=== PATIENT | female | born 1965 | race Caucasian/White ===

== ENCOUNTER 2020-04-24 16:52 | Outpatient (CLI) | payer BC ==
--- NOTE | 2020-04-24 17:25 | RAD ---
XR Knee Rt 4 View STANDARD HISTORY: Right knee pain FINDINGS: No fracture or dislocation is identified. Degenerative changes are present.
--- NOTE | 2020-04-24 17:34 | RAD ---
LEFT ANKLE THREE VIEWS: 04/24/10 HISTORY: Left ankle pain. FINDINGS/IMPRESSION: No acute fracture or dislocation is seen. The ankle mortise is maintained. Posterior and plantar calc aneal spurs are present. POS: OFF
== END 2020-04-24 16:53 | disposition home or self-care (01) ==
LOC: NAV RAD 16:52
PROVIDERS: ATTEND Family Medicine
DX: M25.561 Pain in right knee (principal); M77.31 Calcaneal spur, right foot; M17.11 Unilateral primary osteoarthritis, right knee